=== PATIENT | female | born 1935 | race Caucasian/White ===

== ENCOUNTER 2019-07-28 17:12 | Observation (INO) ==
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
[2019-07-28] MEDS ORDERED: ACETAMINOPHEN 500 MG TABLET PO PRN (20:13)
--- NOTE | 2019-07-28 21:18 | HP ---
Chief Complaint - Chief Complaint Date of Service: 07/28/19 Time of Service: 21:06 Chief Complaint: I fell and hit my head and had left hip pain History of Present Illness: 84-year-old female with past medical history of hypertension, hypothyroidism, osteoarthritis, was evaluated in the ER due to a head injury secondary to a fall that occurred in her home this afternoon. Patient was seen in our ER yesterday for left hip pain and was discharged with pain medications when x-rays were negative for any fractures. Patient was prescribed an oral opioids and said several hours after taking a dose while attempting to go to the bathroom her leg gave out from under her and she fell and hit her head. She denies losing consciousness but said she noticed a bump in her head from the injury. Patient was unable to get up on her own but was discovered by her son who then took her to the ER. She is not sure if the weakness in her legs that caused her to fall was caused by the analgesic that she took but does admit that she ambulates normally with a walker or a cane due to poor balance. Patient normally takes ibuprofen for pain but says the effect was only minimal so she needed something stronger asked why she came to the ER. Medical History (Updated 07/28/19 @ 19:40 by Maisha Ann MD) Osteoarthritis (Chronic) Onset Date: Unknown Hypothyroidism (Chronic) Onset Date: Unknown Hypertension (Chronic) Onset Date: Unknown Colonic benign neoplasm Onset Date: ~2001 Diverticulitis Onset Date: ~2001 Acute pansinusitis Onset Date: ~02/2018 Cataracts, bilateral Onset Date: ~2001 Surgical History: Surgical History (Updated 06/05/18 @ 13:07 by Sheeba Walton RN) H/O ileostomy Onset Date: Unknown History of cataract surgery Onset Date: ~2001 History of colon resection Onset Date: ~2001 diverticulitis, benign tumor History of colostomy Onset Date: ~2001 History of colostomy reversal Onset Date: ~2001 History of left knee replacement Onset Date: ~2013 History of right knee joint replacement Onset Date: ~2006 Family History: Family History (Updated 06/05/18 @ 13:08 by Sheeba Walton RN) Father Lung cancer Grandmother Diabetes Mother CVA (cerebral vascular accident) Diverticulitis Social History: (Last Reviewed 07/28/19 @ 17:18 by Jacquie Cox RN) Social History: adopted: No foster care: No penitentiary: No Marital status: / lives independently: Yes household members: none caregiver/support person: No current occupational status: retired Highest education level completed: high school graduate Service: No Tobacco: Smoking Status: Never smoker Alcohol: alcohol intake: never Substance Use: substance use type: does not use Dietary Habits: caffeine: Yes Peds Patient Hx - Developmental: No Pertinent Hx Peds Patient Hx - Medical: No Pertinent Hx Peds Patient Hx - Cardiac/Respiratory: No Pertinent Hx Peds Patient Hx - Surgical: No Surgical History Patient History - Cancer: No Hx of Cancer Review Of Systems (GEN) - Review of Systems Generalized/Overall Review: Present: No Symptoms Reported EENTM: Present: No Symptoms Reported Respiratory: Present: No Symptoms Reported Cardiac: Present: No Symptoms Reported Abdominal: Present: No Symptoms Reported Genitourinary: Present: No Symptoms Reported Musculoskeletal: Present: Joint Pain - Left hip pain Neurological: Present: No Symptoms Reported Skin: Present: No Symptoms Reported Endocrine: Present: No Symptoms Reported Immunizations: IMMUNIZATION HX Immunizations Up to Date Yes History of Influenza Vaccine Yes Hx Pneumococcal Vaccination Yes Allergies/Adverse Reactions: Allergies Allergy/AdvReac Type Severity Reaction Status Date / Time levofloxacin [From Levaquin] AdvReac Intermediate Nausea Verified 07/28/19 17:17 Home Medications: HOME MEDICATIONS Aspirin 325 mg PO DAILY 10/29/14 [Last Taken 11/20/17] levothyroxine 100 mcg tablet 100 mcg PO DAILY #90 tab 03/17/19 [Last Taken Unknown] metoprolol succinate ER 200 mg tablet,extended release 24 hr 200 mg PO DAILY #90 tab 03/17/19 [Last Taken Unknown] triamterene 37.5 mg-hydrochlorothiazide 25 mg tablet 1 tab PO DAILY #90 tab 03/17/19 [Last Taken Unknown] HYDROcodone/ACETAMINOPHEN [[place] 5-325] 1 - 2 ea PO Q6H PRN #30 tab 07/28/19 [Last Taken Unknown] Exam - Exam Vital Signs: Vital Signs - Last Taken Temp 37.2 C 07/28/19 17:13 Pulse 65 07/28/19 19:11 Resp 13 07/28/19 19:11 BP 142/62 07/28/19 19:11 Pulse Ox 97 07/28/19 19:11 Constitutional: Present: Alert, Oriented x3, Cooperative, Well developed, Well nourished, No distress ENT Exam: Present: normal ENT inspection, hearing grossly normal, pharynx normal, TMs normal Eye Exam: bilateral eye: normal inspection, PERRL, EOMI Neck: Present: non-tender, full range of motion, supple, normal inspection, trachea midline Back Exam: Present: normal inspection, no CVA tenderness, no vertebral tenderness Breasts: Present: Exam deferred Respiratory: Present: chest non-tender, lungs clear, normal breath sounds, no respiratory distress, no accessory muscle use Cardiovascular/Chest: Present: normal peripheral pulses, regular rate, rhythm, no chest tenderness, no edema, no gallop, no JVD, no murmur, no rub Peripheral Pulses: carotid (R): 3+, carotid (L): 3+, femoral (R): 3+, femoral (L): 3+ Abdomen: Present: Normal bowel sounds, soft, nontender, nondistended, no rebound tenderness, no hepatospenomegaly, no masses /Rectal: Present: Exam deferred Extremity: Present: normal range of motion, no pedal edema, no calf tenderness, normal capillary refill, other - Posterior hip tenderness Skin Exam: Present: normal color, warm/dry, no cyanosis Lymphatic: Present: no adenopathy Neurologic: Present: process coach II-XII nml as tested, no motor/sensory deficits, alert, normal mood/affect, oriented x 3, abnormal gait Appearance: Present: appropriate appearance, appropriate insight, neat, no memory impairment Eye contact: Present: cooperative, good eye contact, normal speech Thoughts: Present: normal thought pattern, no apparent hallucination Assessment/Plan - Narrative Narrative: Patient was evaluated and medical chart was reviewed and decision to admit to observation in [facility] unit for a small subdural bleed was made. Patient's head CT demonstrates a small subdural bleed in the right sagittal falx with no mass- effects or signs of herniation, her neurological exam did not yield any abnormal findings and patient denies any lightheadedness or dizziness at the moment. She was admitted with vital checks every 1 hour and will be undergoing a follow-up head CT 6 hours after the initial head CT per the neurosurgeon at the [facility]'s recommendation. She will also be administered Keppra as recommended by her neurosurgeon. We will continue to monitor her and follow-up with head CT results. Patient's routine medications except her aspirin will be resumed administered to her while she is under our care. - Assessment/Plan (1) Fall Problem: Acute (2) Left hip pain Problem: Chronic (3) Subdural bleeding Problem: Acute (4) HTN (hypertension) Problem: Chronic (5) Osteoarthritis Problem: Chronic Qualifiers: Osteoarthritis location: multiple joints
[2019-07-28] MEDS: levETIRAcetam 500 MG TABLET PO SCH (22:47)
[2019-07-29] MEDS: HYDROcodone/ACETAMINOPHEN 1 EACH TABLET PO PRN ×3 (00:21→14:35)
[2019-07-29] MEDS ORDERED: LEVOTHYROXINE SODIUM 100 MCG TABLET PO SCH (06:00)
[2019-07-29] MEDS ORDERED: METOPROLOL SUCCINATE 100 MG TABLET.SA PO SCH (09:00)
[2019-07-29] MEDS ORDERED: TRIAMTERENE/HYDROCHLOROTHIAZID 1 TAB TABLET PO SCH (09:00)
[2019-07-29] MEDS: levETIRAcetam 500 MG TABLET PO SCH (09:31)
--- NOTE | 2019-07-29 09:50 | DS ---
(1) Fall Problem: Acute (2) Left hip pain Problem: Chronic (3) Subdural bleeding Problem: Acute (4) HTN (hypertension) Problem: Resolved (5) Osteoarthritis Problem: Chronic Qualifiers: Osteoarthritis location: multiple joints Date of Discharge:: 07/29/19 Description of Stay: 84-year-old female admitted for a small subdural bleed secondary to a fall that occurred in her home yesterday was evaluated at bedside and was found to be afebrile and in no acute distress. Follow-up CT done 6 hours after the initial CT was negative for any expansion of her subdural bleed, there were no signs of herniation or any other acute abnormalities. We are closely following the recommendations of the neurosurgeon at the [facility] who recommended a repeat CT and for the patient to take Keppra twice daily for the next 7 days. These instructions were explained very carefully to the patient and she was counseled on the importance of safety and fall prevention to avoid any further head injury. She was also instructed to follow-up with her PCP in the next 7 to 10 days. Patient is being discharged to [facility] where she will undergo PT to work on her balance. Procedures Performed: none Discharge Location: [facility] Disposition: Intermediate Care Facility ICF Condition: Stable Face to Face Encounter completed per [facility] Guidelines: No Level of Care: ICF Discharge Activity: Activity as tolerated Discharge Diet: General/regular food Long Term Therapy: Physical Therapy Referrals: Jane Adams FNP [Primary Care Provider] - Problem Oriented Discharge Instructions to Patient/Family: Fall Prevention in the Home, [id number], Subdural Hematoma Additional Patient Instructions (free text): PT eval and treat under Part B. Keep previously scheduled appointment with Jane Adams on 08-05-19 at 11:00 am. this is a TCM Prescriptions (Any new or edited meds): levETIRAcetam [Keppra] 500 mg PO BID 7 Days #14 tab Complete Home Medications List: Complete Home Medication List: Aspirin 325 mg PO DAILY 10/29/14 levothyroxine 100 mcg tablet 100 mcg PO DAILY #90 tab 03/17/19 metoprolol succinate ER 200 mg tablet,extended release 24 hr 200 mg PO DAILY #90 tab 03/17/19 triamterene 37.5 mg-hydrochlorothiazide 25 mg tablet 1 tab PO DAILY #90 tab 03/17/19 HYDROcodone/ACETAMINOPHEN [[place] 5-325] 1 ea PO Q6H PRN tab 07/29/19 levETIRAcetam [Keppra] 500 mg PO BID 7 Days #14 tab 07/29/19
[2019-07-29 16:19] VITALS: BP 152/70
== END 2019-07-29 14:42 ==
LOC: ER 17:12 → MS 17:12
PROVIDERS: ADMIT Family Medicine; ATTEND Family Medicine
CPT/HCPCS: 70450; 73502; 99285; G0378